=== PATIENT | male | born 1945 | race Caucasian/White ===

== ENCOUNTER 2019-08-04 16:02 | Outpatient (RCR) | payer MEDICARE, SELFPAY | END 2019-11-02 23:59 | disposition home or self-care (01) | LOC: CHSPT 16:02 | PROVIDERS: Visit Provider Family Medicine | DX: M54.6 Pain in thoracic spine (principal) | CPT/HCPCS: 97014; 97110; G0283 ==

== ENCOUNTER 2020-08-20 07:57 | Outpatient (CLI) | payer MEDICARE, SELFPAY ==
--- NOTE | ~2020-08-20 | XR_ITS ---
MODIFIED ESOPHAGRAM HISTORY: Dysphagia. TECHNIQUE: Modified barium esophagram was performed by speech pathologist under radiologist fluorosco pic guidance. This was recorded on tape. The exam was reviewed on 08/20/2020 09:55 SENIOR COUNSEL. The DAP for this procedure was 1.3 Gycm2. Fluoroscopy time is 1.3 minutes. FINDINGS: Lateral projection of the cervical spine demonstrates normal alignment. There is normal s wallowing function in all phases without evidence for penetration or aspiration.. IMPRESSION: 1: Normal swallowing function without evidence for penetration or aspiration. 2: Please refer to speech pathologist report for additional detail. Reviewed, dictated and finalized at location B. OR COUNSEL
--- NOTE | 2020-08-20 13:48 | STOPEVAL ---
MODIFIED BARIUM SWALLOW EVALUATION: Thank you for referring Jimbo Hernandez to [facility].? Attending Provider: Fidel Kearns MD FAX: [phone] *[place] [place] Start: 08/20/20 13:28 Freq: Status: Active Protocol: Document 08/20/20 13:28 BECHERERT (Rec: 08/20/20 13:48 BECHERERT [email or web address]) Therapy Assessment Status Assessment Status Assessment Status Evaluation Outpatient Past Medical History Past Medical History Source of Past Medical History Patient Respiratory History Hx Sleep Apnea Yes: CPAP at night Gastrointestinal History Hx Gastroesophageal Reflux Disease Yes: on omeprazole Prior Level of Function Prior Swallow Level Prior Intake Method Oral Prior Diet Regular (Level 7 Diet) Prior Liquid Consistency Thin (Level 0 Diet) Pain Assessment Timing of Pain Assessment Timing of Pain Assessment Assessment Self Report Self Report Pain Level 0 Pain Score Pain Score 0: Self Report Modified Barium Swallow Evaluation Recent Swallowing History Reports Dysphagia Yes: no choking but food gets stuck; chest pain after eating Onset of Dysphagia 8 months or so History of Dysphagia previous esophageal dilatations History of Pneumonia No Reported Difficult Consistencies Solids Intake Method Prior to Swallow Oral Evaluation Diet Prior to Swallow Evaluation Regular, Level 7 Liquid Consistency Prior to Swallow Thin (0) Evaluation Consistency Thin Uncontrolled 2 Method of Presentation Straw Oral Preparatory Symptoms None Oral Phase Symptoms None Pharyngeal Phase Symptoms None Severity of Vallecular Residue None - 0% No Residue Severity of Pyriform Sinus Residue None - 0% No Residue 8 Point Laryngeal Penetration-Aspiration Material Does Not Enter Airway Scale Cervical/Esophageal Symptoms None Thin Uncontrolled 1 Method of Presentation Cup Oral Preparatory Symptoms None Oral Phase Symptoms None Pharyngeal Phase Symptoms None Severity of Vallecular Residue None - 0% No Residue Severity of Pyriform Sinus Residue None - 0% No Residue 8 Point Laryngeal Penetration-Aspiration Material Does Not Enter Airway Scale Cervical/Esophageal Symptoms None Solid Consistency Method of Presentation Spoon Oral Preparatory Symptoms None Oral Phase Symptoms None Pharyngeal Phase Symptoms None Severity of Vallecular Residue None - 0% No Residue Severity of Pyriform Sinus Residue None - 0% No Residue 8 Point Laryngeal Penetration-Aspiration Material Does Not Enter Airway Scale Cervical/Esophageal Symptoms
== END 2020-08-20 07:58 | disposition home or self-care (01) ==
LOC: CHSIMG 08:00
PROVIDERS: PCP Family Medicine; Visit Provider Otolaryngology
DX: R13.10 Dysphagia, unspecified (principal); R09.89 Other specified symptoms and signs involving the circulatory and respiratory systems; R07.0 Pain in throat
CPT/HCPCS: 92611

== ENCOUNTER 2021-04-16 07:14 | Outpatient (CLI) | payer MEDICARE, SELFPAY ==
--- NOTE | ~2021-04-16 | MR_ITS ---
EXAMINATION: MR lumbar spine wo con DATE: 04/16/2021 09:27 INDICATION: Bilateral leg pain. Low back pain. TECHNIQUE: Magnetic resonance imaging (MRI) of the lumbar spine was performed without intravenous con trast. Sequences included sagittal T2-weighted FSE, sagittal T2-weighted FS FSE, sagittal T1-weighted FSE, and axial T2-weighted FSE. COMPARISON: CT abdomen and pelvis 10/16/2017 FINDINGS: Bone alignment is normal. Vertebral body heights are normal. There is mildly decreased disc height at L2-L3 and L3-L4 and severely decreased disc height at L4-L5 and L5-S1. There is interbody fusion at L5-S1. The distal spinal cord signal intensity is normal. The conus medullaris is at L1. Th ere are cysts in right kidney measuring up to 19 mm. The following disc levels are specifically discu ssed: L1-L2: The disc does not extend beyond the endplate margin. There is moderate bilateral facet joint o steoarthritis. There is no neural foraminal stenosis. There is no central canal stenosis. L2-L3: The disc is bulging and has an annular fissure. There is severe bilateral facet joint osteoart hritis. There is mild bilateral neural foraminal stenosis. There is mild central canal stenosis. L3-L4: The disc is bulging and has an annular fissure. There is severe bilateral facet joint osteoart hritis. There is mild bilateral neural foraminal stenosis. There is mild central canal stenosis. L4-L5: The disc is bulging and has an annular fissure. There is severe bilateral facet joint osteoart hritis. There is moderate bilateral neural foraminal stenosis. There is mild central canal stenosis. There is moderate stenosis of the lateral recesses. L5-S1: The disc is bulging. There is mild bilateral facet joint osteoarthritis. There is mild bilater al neural foraminal stenosis. There is mild central canal stenosis. IMPRESSION: 1. Severe lower lumbar spondylosis. Reviewed, dictated and finalized at location A.
== END 2021-04-16 07:15 | disposition home or self-care (01) ==
LOC: CHSIMG 07:17
PROVIDERS: PCP Family Medicine; Visit Provider Family Medicine
DX: M79.604 Pain in right leg (principal); M79.605 Pain in left leg
CPT/HCPCS: 72148

== ENCOUNTER 2021-10-28 12:25 | Outpatient (CLI) | payer MEDICARE, SELFPAY ==
--- NOTE | ~2021-10-28 | US_ITS ---
EXAMINATION: US arterial ankle brachial ind DATE: 10/28/2021 12:56 INDICATION: Claudication TECHNIQUE: Segmental pressures and plethysmographic and Doppler waveforms of the brachial and lower e xtremity arteries were obtained. COMPARISON: None. FINDINGS: Right and left brachial artery pressures of 151 mm Hg and 148 mm Hg, respectively, are concordant (no rmal difference <= 30 mmHg). The right ankle-brachial index (MANI) is 1.15 (normal >= 0.9-1.0). Arterial Doppler waveforms are tr iphasic. The left MANI is 1.09. Arterial Doppler waveforms are triphasic. IMPRESSION: Bilateral normal MANI Reviewed, dictated and finalized at Location A. Reviewed, dictated and finalized at location A. [employer] IMPRESSION: Bilateral normal MANI
== END 2021-10-28 12:26 | disposition home or self-care (01) ==
LOC: CHSIMG 12:26
PROVIDERS: PCP Family Medicine; Visit Provider Family Medicine
DX: I73.9 Peripheral vascular disease, unspecified (principal)
CPT/HCPCS: 93922

== ENCOUNTER 2022-02-10 12:40 | Outpatient (CLI) | payer MEDICARE, SELFPAY ==
--- NOTE | ~2022-02-10 | XR_ITS ---
EXAMINATION: XR chest 2V DATE: 02/10/2022 12:57 INDICATION: 2 weeks of cough TECHNIQUE: PA and lateral views of the chest were obtained. COMPARISON: Chest radiograph dated 12/12/2018 FINDINGS: The lungs remain clear with no focal airspace opacities, pulmonary edema, pleural effusion or pneumot horax. The cardiomediastinal silhouette is normal. Unchanged minute radiopaque foreign body in the in ferior left pectoral subcutaneous tissues. Visualized bones and soft tissues are otherwise unremarkab le. IMPRESSION: 1. No acute cardiopulmonary disease. Reviewed, dictated and finalized at location B.
== END 2022-02-10 12:41 | disposition home or self-care (01) ==
LOC: CHSIMG 12:42
PROVIDERS: PCP Family Medicine; Visit Provider Registered Nurse
DX: R05.9 Cough, unspecified (principal)
CPT/HCPCS: 71046

== ENCOUNTER 2022-07-26 13:44 | Outpatient (RCR) | payer MEDICARE, SELFPAY ==
--- NOTE | 2022-07-26 14:54 | PTOPEVAL1 ---
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 he reports the pain in the R knee was getting to much to deal with and made it difficult to walk, go up stairs, and carry on with his daily living. he reports he is sore today. he reports he was up and down all night having to use the restroom due to drinking more water than normal lately. Reported Pain Level Pain Score 4: Self Report Assessment PT Clinical Summary mr. sepulveda presents to skilled PT services for evaluation and treatment s/p R TKA. he presents this date with R knee decreased rom, weakness, pain, swelling, and abnormal gait mechanics. he would do well to attend skilled PT to improve his objective/functional deficits and progress towards return to prior level functional activity performance with little to no pain. Plan of Care Interventions Electrical Stimulation,Gait Training,Hot Pack/Cold Pack,Intermittent Compression,Manual Therapy, Neuro Re-education,Patient/Caregiver Educati, Therapeutic Activities,Therapeutic Exercise PT Services Indicated Yes Treatment Frequency and 3x weekly for 12 visits Duration These treatments will address the objective and functional deficits as defined above. The patient will be advanced safely and appropriately in order for the patient to progress towards his/her prior level of function. Additional exercises will be introduced and as well as a comprehensive home exercise program upon discharge, if needed, ?to ensure carryover of functional gains achieved in the clinic. This treatment plan has been reviewed and agreement upon by the patient.
--- NOTE | 2022-08-23 13:04 | PTOPEVAL1 ---
Assessment and note entered by Abundio Zimmer Evaluation Information Assessment Status Progress Diagnosis s/p R TKA Onset 07/24/22 Subjective Information Pt. reports that he recently returned to the doctor. He states that the doctor was happy the progress of bending his knee. He states that the doctor did continue to express concern regarding the pt. being able to straighten the knee and had concern with his walking. Reported Pain Level Pain Score 4: Self Report Assessment PT Clinical Summary Pt. has attended a total of 12 treatment sessions. In this time pt. has demonstrated improvements in strength and ROM. He continues to present with impaired gait and limitations in extension mobility at the right knee. Recommend continued skilled PT to further improve ROM to allow the pt. improved mechanics with ambulation and safe return to all IADL's. Plan of Care Interventions Hot Pack/Cold Pack,Intermittent Compression,Manual Therapy,Therapeutic Activities,Therapeutic Exercise,Self-Care/Home Management PT Services Indicated Yes Treatment Frequency and 2x/week x 6 visits Duration These treatments will address the objective and functional deficits as defined above. The patient will be advanced safely and appropriately in order for the patient to progress towards his/her prior level of function. Additional exercises will be introduced and as well as a comprehensive home exercise program upon discharge, if needed, ?to ensure carryover of functional gains achieved in the clinic. This treatment plan has been reviewed and agreement upon by the patient.
--- NOTE | 2022-09-15 13:57 | PTOPPROG ---
Assessment and note entered by Niyah Morris DPT Evaluation Information Assessment Status Progress Diagnosis s/p R TKA Onset 07/24/22 Subjective Information Pt reports that his biggest remaining complaint in his knee is that he always feels it with activities. He feels he is able to do everything that he needs to do, but his knee pain remains noticeable. He notes he doesn't do a lot of heavy activities anymore and hasn't tried to ride his tractor. He has his next follow-up with his MD at the end of September. Assessment PT Clinical Summary Pt presents to PT with significant improvements in range of motion, strength, and gait pattern. He still remains limited in knee extension ROM which leads to continued lacking R knee TKE during ambulation. His HEP was updated to continue to improve knee extension as needed for a better gait pattern and for increased mobility. He is likely to benefit from additional skilled PT at 1x week to further improve the aforementioned impairments, facilitate symptom relief, increase independence with HEP, and return to full functional and recreational activity participation. Plan of Care PT Services Indicated Yes Treatment Frequency and 1x week for 4 visits Duration These treatments will address the objective and functional deficits as defined above. The patient will be advanced safely and appropriately in order for the patient to progress towards his/her prior level of function. Additional exercises will be introduced and as well as a comprehensive home exercise program upon discharge, if needed, ?to ensure carryover of functional gains achieved in the clinic. This treatment plan has been reviewed and agreement upon by the patient.
--- NOTE | 2022-10-12 10:34 | PTOPREEVAL ---
Assessment and note entered by JT File, PT Evaluation Information Assessment Status Progress Diagnosis s/p R TKA Onset 07/24/22 Subjective Information Pt reports that his biggest remaining complaint in his knee is that he always feels it with activities. He feels he is able to do everything that he needs to do, but his knee pain remains noticeable. He notes he doesn't do a lot of heavy activities anymore and hasn't tried to ride his tractor. He has his next follow-up with his MD at the end of September. Reported Pain Level Pain Score 3: Self Report Assessment PT Clinical Summary mr. abel presents to skilled PT for his skilled PT visit. as of this date, he has achieved goals for LE strength, hep performance, stair ambulation, and ambulation AD needs. however, he continues to present with lack of full R knee arom extension, he has swelling in the R knee, is tender to palpation/has pain at all times in the R lateral patella, and continues report limitations in his functional activity performance/quality of life. he has a follow up with MD next week, and was instructed to hold therapy until he has this MD visit. Plan of Care Interventions Intermittent Compression,Manual Therapy, Therapeutic Activities,Therapeutic Exercise,Self- Care/Home Management PT Services Indicated Yes Treatment Frequency and hold therapy for follow up with MD Duration These treatments will address the objective and functional deficits as defined above. The patient will be advanced safely and appropriately in order for the patient to progress towards his/her prior level of function. Additional exercises will be introduced and as well as a comprehensive home exercise program upon discharge, if needed, ?to ensure carryover of functional gains achieved in the clinic. This treatment plan has been reviewed and agreement upon by the patient.
--- NOTE | 2022-10-12 10:36 | PTOPREEVAL ---
Assessment and note entered by JT File, PT Evaluation Information Assessment Status Re-evaluation Diagnosis s/p R TKA Onset 07/24/22 Subjective Information patient reports he continues to ahve steady pain at a 3/10 in the R knee. he reports the pain is on the outside of the R knee and never lets up. he reports he feels more tight and swollen at the end of the day. he reports he is doing his exercises and walking 3-4 times a day. he reports he has a follow up with his MD next week. Reported Pain Level Pain Score 3: Self Report Assessment PT Clinical Summary mr. abel presents to skilled PT for his skilled PT visit. as of this date, he has achieved goals for LE strength, hep performance, stair ambulation, and ambulation AD needs. however, he continues to present with lack of full R knee arom extension, he has swelling in the R knee, is tender to palpation/has pain at all times in the R lateral patella, and continues report limitations in his functional activity performance/quality of life. he has a follow up with MD next week, and was instructed to hold therapy until he has this MD visit. Plan of Care Interventions Intermittent Compression,Manual Therapy, Therapeutic Activities,Therapeutic Exercise,Self- Care/Home Management PT Services Indicated Yes Treatment Frequency and hold therapy for follow up with MD Duration These treatments will address the objective and functional deficits as defined above. The patient will be advanced safely and appropriately in order for the patient to progress towards his/her prior level of function. Additional exercises will be introduced and as well as a comprehensive home exercise program upon discharge, if needed, ?to ensure carryover of functional gains achieved in the clinic. This treatment plan has been reviewed and agreement upon by the patient.
--- NOTE | 2022-11-27 17:37 | PCPTNOTE ---
per last visit, patient was awaiting follow up with MD. he continues to have pain in the R knee, but is now more complicated by lower back pain. he would like to be DC'd from therapy at this time. DIMA
== END 2022-10-12 23:59 | disposition home or self-care (01) ==
LOC: CHSPT 13:44
PROVIDERS: Visit Provider Orthopaedic Surgery
DX: Z47.1 Aftercare following joint replacement surgery (principal); M17.11 Unilateral primary osteoarthritis, right knee; Z96.651 Presence of right artificial knee joint
CPT/HCPCS: 97014; 97016; 97110; 97112; 97140; 97161; 97530; G0283

== ENCOUNTER 2023-01-19 08:19 | Outpatient (CLI) | payer MEDICARE, SELFPAY ==
--- NOTE | 2023-01-22 20:10 | P.PCNHOL_ITS ---
Holter/Event Monitor Holter/Event Monitor Date of procedure: 01/19/23 Holter/Event Procedure: 24 Hr Holter Monitor Indications: Bradycardia Conclusion: 1. 24 hour holter monitor on 01/19/23. 2. Underlying rhythm is sinus rhythm, HR range 30-79 bpm; average 44 bpm. HR at 30 bpm was sinus rhythm with second degree AV block, type I at 06:52. 3. There are 376 premature supraventricular complexes, 86 supraventricular co uplets, 608 supraventricular bigeminy, and 7 supraventricular trigeminy. No supraventricular tachycardia. 4. There are 198 premature ventricular complexes, 112 ventricular bigeminy. No ventricular tachycardia. 5. There is right bundle branch block. There are intermittent second degree AV block, type II with 2:1, 3:1, and 4:1 AV block. The longest pause is 3.2 seconds at 02:28 due to second degree AV block with 4:1 AV block. 6. Patient reports symptoms of headache and chest tightness which demonstrate sinus rhythm, HR range 34-42 bpm with second degree AV block, type II with 2:1 AV block and 3:1 AV block.
== END 2023-01-19 08:20 | disposition home or self-care (01) ==
LOC: CHSCARD 08:22
PROVIDERS: PCP Family Medicine; Visit Provider Family Medicine
DX: R00.1 Bradycardia, unspecified (principal); I45.19 Other right bundle-branch block
CPT/HCPCS: 93225; 93226

== ENCOUNTER 2023-10-28 20:55 | Emergency (ER) | payer MEDICARE, SELFPAY ==
--- NOTE | ~2023-10-28 | XR_ITS ---
AP view of the pelvis and AP and lateral views of the right hip Clinical history: Pain Findings: No acute fracture or dislocation is seen. Osseous alignment is anatomic. There is mild dege nerative change of both hip joints. Soft tissues are unremarkable. 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 Reviewed, dictated and finalized at location . 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
[2023-10-28 21:05] VITALS: BP 185/77; PULSE 67; RESP 18; TEMP 36.7; O2SAT 97
--- NOTE | 2023-10-28 21:06 | ED.BACK ---
HPI - Back Pain/Injury General Chief Complaint: Back Pain/Injury Stated Complaint: Flank/Groin Pian Time Seen by Provider: 10/28/23 21:06 Source: patient Mode of arrival: ambulatory Limitations: no limitations History of Present Illness HPI Narrative: 78-year-old male with a history of hypertension, dyslipidemia, diabetes mellitus Status post bilateral inguinal hernia repair, presents to the ER with a 2 day history of -- right flank pain radiating down to the right groin and up to right CVA angle. pain is made worse by movement. Pain is continuous. No fever or chills. No dysuria or hematuria. No history of kidney stones. Onset (ago): day(s) ( Two days) Timing: constant Severity: severe Similar Symptoms Previously: No Quality: aching Location: right flank Radiation: right upper leg Exacerbating factors: movement Relieving factors: immobilization Associated symptoms: denies other symptoms Related Data Home Medications Medication Instructions Recorded Confirmed atorvastatin 20 mg tablet 20 mg PO DAILY 06/09/20 10/28/23 glipizide 10 mg tablet 10 mg PO BID 06/09/20 10/28/23 lisinopril 40 mg tablet 40 mg PO DAILY 06/09/20 10/28/23 omeprazole 40 mg capsule,delayed 40 mg PO BID 06/09/20 10/28/23 release aspirin 81 mg chewable tablet 81 mg PO DAILY 10/28/23 10/28/23 chlorthalidone 25 mg tablet 12.5 mg PO DAILY 10/28/23 10/28/23 hydralazine 25 mg tablet 25 mg PO TID 10/28/23 10/28/23 nifedipine 60 mg tablet,extended 60 mg PO DAILY 10/28/23 10/28/23 release 24 hr sitagliptin phosphate 100 mg 100 mg PO DAILY 10/28/23 10/28/23 tablet (Januvia) Allergies Allergy/AdvReac Type Severity Reaction Status Date / Time No Known Allergies Allergy Verified 07/07/20 13:12 Review of Systems Review of Systems: All systems reviewed & are unremarkable except as noted in HPI and below Constitutional: Constitutional: Reports as per HPI and Reports no additional constitutional complaints Eyes: Eyes: Reports as per HPI and Reports no additional eye complaints ENT: Reports system reviewed and no additional complaints, except as documented and Reports as per HPI Cardiovascular: Cardiovascular: Reports as per HPI and Reports no additional cardiovascular complaints Respiratory: Respiratory: Reports as per HPI and Reports no additional respiratory complaints Gastrointestinal: Gastrointestinal: Reports as per HPI and Reports no additional gastrointestinal complaints Genitourinary: Genitourinary: Reports no additional male genitourinary complaints and Reports as per HPI Musculoskeletal: Musculoskeletal: Reports no additional musculoskeletal complaints and Reports as per HPI Comments: right groin pain which radiates up and down. Pain is continuous. Integumentary/Breasts: Skin/Breast: Reports system reviewed and no additional complaints, except as docu and Reports as per HPI Neurologic: Reports system reviewed and no additional complaints, except as documented and Reports as per HPI Psychiatric: Psychiatric: Reports no additional psychiatric complaints and Reports as per HPI Endocrine: Endocrine: Reports no additional endocrine complaints and Reports as per HPI Hematologic/Lymphatic: Hematologic/Lymphatic: Reports no additional hematologic/lymphatic complaints and Reports as per HPI Allergic/Immunologic: Allergic/Immunologic: Reports no additional allergic/immunologic complaints and Reports as per HPI PMFSH Past Medical History Medical History (Updated 10/28/23 @ 22:21 by Jones Barker MD) Diabetes mellitus Dyslipidemia Hypertension Surgical History Surgical History (Updated 10/28/23 @ 21:22 by Jones Barker MD) H/O bilateral inguinal hernia repair Social History Social History (Updated 07/07/20 @ 13:13 by Beatrice Nichols MA) Smoking status: Never smoker Exam Narrative: systolic hypertension. Afebrile Const: General: healthy appearing Orientation/consciousness: patient britany
[2023-10-28] MEDS: ONDANSETRON HCL ODT 4 MG TABLET PO (21:22)
[2023-10-28] MEDS: KETOROLAC 30 MG/ML VIAL (*BKC) IM (21:24)
[2023-10-28 21:39] LABS: Basophils Absolute Auto 0.03 K/mm3 (0.00-0.10); Basophils Percent Auto 0.3 % (0.0-1.0); Eosinophils Absolute Auto 0.07 K/mm3 (0.02-0.50); Eosinophils Percent Auto 0.7 % (1.0-6.0); Hematocrit 47.1 % (37.0-46.0); Hemoglobin 15.2 g/dL (12.4-15.3); Immature Granulocyte Absolute 0.06 K/mm3 (0.00-0.00); Immature Granulocyte Percent A 0.6 % (0.0-0.0); Lymphocytes Absolute Auto 1.33 K/mm3 (1.10-4.50); Lymphocytes Percent Auto 13.7 % (18.0-42.0); Mean Corpuscular HGB Conc 32.3 g/dL (32.0-36.0); Mean Corpuscular Hemoglobin 27.6 pg (27.0-31.0); Mean Corpuscular Volume 85.5 fL (78.0-102.0); Mean Platelet Volume 11.2 fl (8.7-11.0); Monocytes Absolute Auto 0.63 K/mm3 (0.10-0.90); Monocytes Percent Auto 6.5 % (2.0-11.0); Neutrophils Absolute Auto 7.6 K/mm3 (1.7-7.2); Neutrophils Percent Auto 78.2 % (50.0-70.0); Platelet Count Result 166 K/mm3 (150-420); Red Blood Count 5.51 M/mm3 (4.70-6.10); Red Cell Distribution Width 13.3 % (11.6-14.4); White Blood Count 9.7 K/mm3 (4.8-10.8)
[2023-10-28 21:41] LABS: Appearance Urine Clear (Clear); Bilirubin Urine Negative (Negative); Blood Urine Negative (Negative); Color Urine Light Yellow (Yellow); Glucose Urine UA 2+ (Negative); Ketones Urine Negative (Negative); Leukocyte Esterase Ur Negative LEU/UL (Negative); Nitrate Urine Negative (Negative); Protein Urine 2+ (Negative); Specific Grav Ur >= 1.030 (1.010-1.020); Urobilinogen Urine 0.2 mg/dL (0.2-1.0); pH Urine 6.5 (5.0-8.0)
[2023-10-28 21:51] LABS: Add Urine Microscopic? YES
[2023-10-28 21:52] LABS: Amorphous Sediment Urine Few; Mucus Urine Moderate /lpf
[2023-10-28 21:59] LABS: Alanine Aminotransferase 23 U/L (16-63); Albumin Level 3.6 g/dL (3.4-5.0); Alkaline Phosphatase 73 U/L (46-116); Anion Gap 8 mmol/L (8-16); Aspartate Amino Transferase 15 U/L (15-37); Bilirubin,Total 0.4 mg/dL (0.00-1.00); Blood Urea Nitrogen 13 mg/dL (7-18); Calcium 8.9 mg/dL (8.5-10.1); Carbon Dioxide 29 mmol/L (21-32); Chloride 105 mmol/L (98-108); Estimated CRCL calculation 58 ml/min; Estimated Glomerular Filt Rate > 60; Glucose 193 mg/dL (70-99); Lipase 85 U/L (16-77); Osmolality Calculated 299 mOsm/kg (285-295); Potassium 3.7 mmol/L (3.5-5.1); Sodium 142 mmol/L (136-145); Total Protein 6.8 g/dL (6.4-8.2)
[2023-10-28 22:01] LABS: Lactic Acid Reflex 1.2 mmol/L (0.4-2.0)
[2023-10-28] MEDS: HYDROmorphone HCL INJ (*CRX) 2 MG/ML VIAL 0.5 MG IM (22:23)
[2023-10-28 22:38] VITALS: BP 170/100; PULSE 78; RESP 18; O2SAT 95
== END 2023-10-28 22:40 | disposition home or self-care (01) ==
PROVIDERS: Emergency Provider Internal Medicine Critical Care Medicine; PCP Family Medicine
DX: M16.11 Unilateral primary osteoarthritis, right hip (principal); I10 Essential (primary) hypertension; E78.5 Hyperlipidemia, unspecified; E11.9 Type 2 diabetes mellitus without complications; Z79.82 Long term (current) use of aspirin; Z79.899 Other long term (current) drug therapy
CPT/HCPCS: 36415; 73502; 80053; 81001; 83605; 83690; 85025; 96372; 99284; A9270; J1170; J1885

== ENCOUNTER 2023-12-07 10:02 | Outpatient (RCR) | payer MEDICARE, SELFPAY ==
--- NOTE | 2023-12-07 18:25 | OPREHPOC ---
Outpatient Therapy Plan of Care This is a Multidisciplinary Plan of Care that may contain components documented by all disciplines (PT, OT, and ST.) PT Problem 1 PT Problem #1 Knowledge Deficit PT Goal 1 Goal 1. independent and compliant with HEP Target Visit 6 PT Problem 2 PT Problem #2 Pain PT Goal 1 Goal 1. decrease pain at worst to 2/10 or less in the lower back 2. no R LE radicular symptoms Target Visit 12 PT Problem 3 PT Problem #3 Impaired Range of Motion PT Goal 1 Goal 1. improve active lumbar flexion to ankles without pain 2. improve active lumbar extension to 30 degrees without pain 3. improve active lumbar side bending bilaterally to 40 degrees or better without pain Target Visit 12 PT Problem 4 PT Problem #4 Impaired Strength PT Goal 1 Goal 1. improve bilateral hip strength to 4+/5 or better overall 2. improve core strength to 4/5 or better Target Visit 12 PT Problem 5 PT Problem #5 Impaired Functional Mobil PT Goal 1 Goal 1. oswestry to display 25% or less functional deficits 2. patient to tolerate activities in therapy for 30 minutes without rest 3. patient to safely squat and lift 40lbs from floor to waist with good mechanics and no pain 4. patient perform 10 minutes ambulation without rest in therapy Target Visit 12
--- NOTE | 2023-12-07 18:25 | PTOPEVAL1 ---
Assessment and note entered by JT File, PT Evaluation Information Assessment Status Evaluation Diagnosis lumbar radiculopathy, lumbar spinal stenosis, R hip pain Onset 10/27/23 Subjective Information patient reports the pain this time around began on 10/27/23. he reports he has had pain in the in the back in the past that used to flare up at times, but go away on its own. he reports on 10/27 he was helping a beau trim some trees at his house. he reports his back pain came on suddenly and made him almost sick to his stomach. he reports he went to the ER and had xrays taken. he reports he was told in the ER he has arthritis in the hip, but his PCP believes he is having more of an issue with sciatica/pinched nerve. he reports since 10/27/23, he has increased pain with increased activity (riding on towel sorter, cleaning his shed, etc). he reports he is only able to tolerate a couple hours of activity before having to stop due to pain. he reports the pain starts in the R side lower back and rusn down the R leg to his knee. he reports the knee feels like it is numb. he reports he does have groin pain. Reported Pain Level Pain Score 5: Self Report Assessment PT Clinical Summary mr. abel is a pleasant 78 yo man who presents to skilled PT services for evaluation and treatment of lower back and R LE pain. he presents with signs and symptoms of lumbar DDD creating radiculopathy into the R LE. he displays decreased lumbar rom, proximal LE weakness, and deficits in functional activities in relative extension ( standing and walking). continued skilled PT is indicated to improve his objective/functional deficits and progress towards return to performance of prior level home and community activities, especially yard and land care. Plan of Care Interventions Hot Pack/Cold Pack,Manual Therapy,Mechanical Traction,Neuro Re-education,Patient/Caregiver Educati,Therapeutic Activities,Therapeutic Exercise PT Services Indicated Yes Treatment Frequency and 3x weekly for 12 visits Duration These treatments will address the objective and functional deficits as defined above. The patient will be advanced safely and appropriately in order for the patient to progress towards his/her prior level of function. Additional exercises will be introduced and as well as a comprehensive home exercise program upon discharge, if nee
--- NOTE | 2024-01-01 08:45 | OPREHPOC ---
Outpatient Therapy Plan of Care This is a Multidisciplinary Plan of Care that may contain components documented by all disciplines (PT, OT, and ST.) PT Problem 1 PT Problem #1 Knowledge Deficit PT Goal 1 Goal 1. independent and compliant with HEP Target Visit 6 Progress Met PT Problem 2 PT Problem #2 Pain PT Goal 1 Goal 1. decrease pain at worst to 2/10 or less in the lower back 2. no R LE radicular symptoms Target Visit 12 Progress Partially Met Comment continue PT Problem 3 PT Problem #3 Impaired Range of Motion PT Goal 1 Goal 1. improve active lumbar flexion to ankles without pain 2. improve active lumbar extension to 30 degrees without pain 3. improve active lumbar side bending bilaterally to 40 degrees or better without pain Target Visit 12 Progress Not Met Comment Continue PT Problem 4 PT Problem #4 Impaired Strength PT Goal 1 Goal 1. improve bilateral hip strength to 4+/5 or better overall 2. improve core strength to 4/5 or better Target Visit 12 Progress Not Met Comment continue PT Problem 5 PT Problem #5 Impaired Functional Mobil PT Goal 1 Goal 1. oswestry to display 25% or less functional deficits 2. patient to tolerate activities in therapy for 30 minutes without rest 3. patient to safely squat and lift 40lbs from floor to waist with good mechanics and no pain 4. patient perform 10 minutes ambulation without rest in therapy Target Visit 12 Progress Not Met Comment continue
--- NOTE | 2024-01-01 08:45 | PTOPEVAL1 ---
Assessment and note entered by Mary Anne Kelly, PT Evaluation Information Assessment Status Progress Diagnosis lumbar radiculopathy, lumbar spinal stenosis, R hip pain Onset 10/27/23 Subjective Information Jimbo Hernandez reports he fell on 12/30/23 while walking his daughter's dog. He states the dog turned around in front of him and he tripped over the dog. He broke his glasses, sustained a black eye, sprained his left wrist, sustained a left knee contusion, and a left chest wall contusion. He went to the ER and x-rays revealed no fractures and that his pacemaker was not affected. He is having the most pain in her left chest wall. He does not note any change to low back or right leg pain following the fall. Overall, he reports minimal low back pain unless he has been bending a lot then he notes right lower back pain and occasional pain in the right knee. Reported Pain Level Pain Score 0: Self Report Assessment PT Clinical Summary Jimbo Hernandez has completed 10 skilled PT visits for lumbar radiculopathy, lumbar spinal stenosis, and right hip pain. He is reporting minimal low back pain but does still get a catch and soreness in the right lower back when he has been bending over too much. He had a fall on 12/30/23 and sustained a left chest wall contusion, left knee contusion, and left wrist sprain. He is reporting the most pain in his left chest wall today after the fall. He continues to demonstrate decreased lumbar AROM, decreased core and hip strength, decreased hamstring flexibility, and tenderness in the right gluteals. He will continue to benefit from skilled PT for 2 additional visits per original POC. Plan of Care Interventions Hot Pack/Cold Pack,Manual Therapy,Mechanical Traction,Neuro Re-education,Patient/Caregiver Educati,Therapeutic Activities,Therapeutic Exercise PT Services Indicated Yes Treatment Frequency and Continue x 2 more visits Duration These treatments will address the objective and functional deficits as defined above. The patient will be advanced safely and appropriately in order for the patient to progress towards his/her prior level of function. Additional exercises will be introduced and as well as a comprehensive home exercise program upon discharge, if needed, ?to ensure carryover of functional gains achieved in the clinic. This treatment plan has been reviewed and agreement upon by the patient.
--- NOTE | 2024-01-04 13:50 | OPREHPOC ---
Outpatient Therapy Plan of Care This is a Multidisciplinary Plan of Care that may contain components documented by all disciplines (PT, OT, and ST.) PT Problem 1 PT Problem #1 Knowledge Deficit PT Goal 1 Goal 1. independent and compliant with HEP Target Visit 6 Progress Met PT Problem 2 PT Problem #2 Pain PT Goal 1 Goal 1. decrease pain at worst to 2/10 or less in the lower back. met 2. no R LE radicular symptoms. met Target Visit 12 Progress Met Comment . PT Problem 3 PT Problem #3 Impaired Range of Motion PT Goal 1 Goal 1. improve active lumbar flexion to ankles without pain. not met 2. improve active lumbar extension to 30 degrees without pain. not met 3. improve active lumbar side bending bilaterally to 40 degrees or better without pain. met Target Visit 12 Progress Partially Met Comment . PT Problem 4 PT Problem #4 Impaired Strength PT Goal 1 Goal 1. improve bilateral hip strength to 4+/5 or better overall. met 2. improve core strength to 4/5 or better Target Visit 12 Progress Partially Met Comment . PT Problem 5 PT Problem #5 Impaired Functional Mobil PT Goal 1 Goal 1. oswestry to display 25% or less functional deficits 2. patient to tolerate activities in therapy for 30 minutes without rest. met 3. patient to safely squat and lift 40lbs from floor to waist with good mechanics and no pain 4. patient perform 10 minutes ambulation without rest in therapy. met Target Visit 12 Progress Partially Met Comment .
--- NOTE | 2024-01-04 13:50 | PTOPDC ---
Assessment and note entered by JT File, PT Evaluation Information Assessment Status Discharge Diagnosis lumbar radiculopathy, lumbar spinal stenosis, R hip pain Onset 10/27/23 Subjective Information patient reports he has found out that he did disrupt a pace maker wire, and has to have a new wire placed. he reports this surgery will be on . he reports he had had no change or increase in his lower back pain since his fall, and his back feels pretty good. Reported Pain Level Pain Score 6,0: Self Report Assessment PT Clinical Summary mr. abel presents to skilled PT services for his 12th skilled therapy visit. he continues to have pain in the L chest from his fall on 12/30/23 . however, he has no back pain or increased back symptoms from this fall. he has found out that he needs a new pace maker wire, and will have surgery on 01/24/24. he has met goals for improved lumbar rom, hip strength, pain reduction, and functional mobility. he has also made progress towards all other goals. we will DC therapy for his lower back at this time. he was educated to follow up with PT about needs for L chest pain following pace maker surgery. Plan of Care PT Services Indicated Yes
== END 2024-01-04 14:28 | disposition home or self-care (01) ==
LOC: CHSPT 10:02
DX: M54.16 Radiculopathy, lumbar region (principal); M48.061 Spinal stenosis, lumbar region without neurogenic claudication; M25.551 Pain in right hip
CPT/HCPCS: 97110; 97140; 97161

== ENCOUNTER 2023-12-30 09:24 | Emergency (ER) | payer MEDICARE, SELFPAY ==
--- NOTE | ~2023-12-30 | CT_ITS ---
EXAMINATION: 1. CT facial & cervical spine wo DATE: 12/30/2023 10:20 INDICATION: Fall with head injury TECHNIQUE: 1. Computed tomography (CT) of the maxillofacial region and of the cervical spine were performed with out intravenous contrast. Sagittal and coronal reconstructions of both regions were obtained. Automat ed exposure control and iterative reconstruction technique were employed. The dose-length product was 493.02 mGy-cm. COMPARISON: None. FINDINGS: Maxillofacial CT: Small contusion in the left malar region. No maxillofacial fractures. Specifically the nasal bones, m andible, zygomatic arches and mitchell of the orbits and paranasal sinuses are all normal. Mild leftward bowing of the nasal septum. Changes of bilateral intraocular lens replacement. Orbits are otherwise normal. Mild mucosal thickening the bilateral ethmoid and maxillary sinuses. Likely bilateral antral window procedures with small defects along the medial mitchell of the right maxillary sinuses. Cervical spine CT: Alignment is normal. Vertebral body heights are normal. No fracture. Moderate to severe disc height l oss with moderate left and severe right uncovertebral osteoarthritis at C5-C6. Small posterior disc o steophyte complex at this level results in mild central canal stenosis. Mild disc height loss with mi ld to moderate uncovertebral osteoarthritis at the remaining cervical levels. There is multilevel sev ere cervical facet osteoarthritis. This contributes to moderate neural foraminal stenosis on the left at C3-C4 with multilevel mild neural from stenosis throughout the remainder of the cervical spine. 5 .3 x 2.9 x 2.6 cm fusiform intramuscular lipoma within the right posterior cervical paraspinal muscul ature. Cervical soft tissues are otherwise unremarkable. Visualized apices of lungs are clear. Partia lly visualized cardiac pacemaker leads in the left subclavian vein. IMPRESSION: 1. Small left malar subcutaneous contusion. No maxillofacial fractures. 2. Moderate to severe cervical spondylosis without acute osseous abnormality. Reviewed, dictated and finalized at location A.
--- NOTE | ~2023-12-30 | XR_ITS ---
EXAMINATION: XR hand LT min 3V, XR wrist LT min 3V DATE: 12/30/2023 10:21 INDICATION: Left wrist pain radiating to the proximal metacarpals TECHNIQUE: 1. Posteroanterior, oblique, and lateral views of the left wrist were obtained. 2. Dorsal palmar, oblique and lateral views of the left hand were obtained. COMPARISON: None. FINDINGS: 2 mm ulnar minus variance. Alignment of the hand and wrist is otherwise normal. No fracture identifi ed. There is erosion at the radial side of the lunate. Polyarticular osteoarthritis, severe at the tr iscaphe joint, moderate severity at the distal radioulnar joint and with prominent marginal osteophyt es at the first carpometacarpal joint and mild at the wrist and multiple metacarpophalangeal and inte rphalangeal joints. IMPRESSION: 1. No acute osseous abnormality at the left hand or wrist. 2. 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 3. Nonspecific erosion at the radial aspect of the lunate. Reviewed, dictated and finalized at location A. IMPRESSION: 1. No acute osseous abnormality at the left hand or wrist. 2. 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 3. Nonspecific erosion at the radial aspect of the lunate.
--- NOTE | ~2023-12-30 | CT_ITS ---
EXAMINATION: CT diagnostic chest wo con DATE: 12/30/2023 10:19 INDICATION: fall/chest pain x1 day TECHNIQUE: Computed tomography (CT) of the chest was performed without intravenous contrast. Addition al 3D reconstructions utilizing coronal maximum intensity projection (MIP) were performed. Automated exposure control and iterative reconstruction technique were employed. The dose-length product was 68 1.00 mGy-cm. COMPARISON: None FINDINGS: Elevation the right hemidiaphragm with compressive atelectasis along the basilar right middle and low er lobes. Additional band of discoid atelectasis in the right lower lobe. There are a few small scatt ered calcified pulmonary nodules along with calcified bilateral hilar lymph nodes and a few tiny sple get calcific lesions all consistent with old granulomatous disease. No pneumonia, pulmonary edema, pl eural effusion or pneumothorax. Heart size is normal. Dual-lead cardiac pacemaker with lead tips in t he right atrium and right ventricle. Thoracic aorta is normal in caliber. No pathologically enlarged thoracic lymphadenopathy. Mild thoracic spondylosis with bridging osteophytes at multiple levels cons istent with diffuse idiopathic skeletal hyperostosis (DISH). Chronic appearing T3 compression fractur e with 20% anterior vertebral body height loss. IMPRESSION: 1. Elevation the right hemidiaphragm with atelectasis in the right middle and lower lobes. No acute c ardiopulmonary disease. Reviewed, dictated and finalized at location A. IMPRESSION: 1. Elevation the right hemidiaphragm with atelectasis in the right middle and l ower lobes. No acute cardiopulmonary disease.
--- NOTE | ~2023-12-30 | CT_ITS ---
EXAMINATION: CT brain wo con DATE: 12/30/2023 10:19 INDICATION: Fall with head injury and bruising to the forehead TECHNIQUE: Computed tomography (CT) of the head was performed without intravenous contrast. Sagittal and coronal reconstructions were performed. The mA was adjusted according to patient size. Iterative reconstruction technique was employed. The dose-length product was 592.25 mGy-cm. COMPARISON: None FINDINGS: No calvarial fracture. No acute intracranial hemorrhage or acute infarction. Focal increased CSF lee ection which appears to displace the anterior left temporal lobe with widening of the anterior aspect of the sylvian fissure suggest the presence of an arachnoid cyst. Symmetric prominence of the sulci consistent with mild age-appropriate diffuse cerebral volume loss. Ventricles are normal and symmetr ic. No mass/mass effect. The orbits and mastoid air cells are normal. Mild mucoperiosteal thickening in the bilateral maxillary sinuses. IMPRESSION: 1. No fracture or acute intracranial process. Reviewed, dictated and finalized at location A.
--- NOTE | ~2023-12-30 | XR_ITS ---
EXAMINATION: XR knee LT 3V DATE: 12/30/2023 10:21 INDICATION: Left knee pain and contusion post fall TECHNIQUE: AP, sunrise, and flexed lateral views of the left knee were obtained COMPARISON: None. FINDINGS: Alignment is normal. No fracture. Severe joint space narrowing at the lateral aspect of the patellof emoral articulation with suggestion of subarticular cystic change at the lateral trochlea. Joint spac e at the medial lateral compartments appear relatively preserved on nonweightbearing imaging. Small l eft knee joint effusion. Soft tissues are otherwise unremarkable. IMPRESSION: 1. No acute osseous abnormality at the left knee. 2. Severe osteoarthritis at the lateral patellofemoral compartment likely reactive small left knee luis daniel int effusion. Reviewed, dictated and finalized at location A. IMPRESSION: 1. No acute osseous abnormality at the left knee. 2. Severe osteoarthritis at the lateral patellofemoral compartment likely react santiago small left knee joint effusion.
[2023-12-30 09:28] VITALS: BP 137/74; PULSE 68; RESP 19; TEMP 36.5; O2SAT 94
--- NOTE | 2023-12-30 09:37 | ED.FALL ---
HPI - Fall General Chief Complaint: Fall Stated Complaint: Fall/chest pain/arm wrist pain Source: patient and family Limitations: no limitations History of Present Illness HPI Narrative: 78 years old white male tripped on his dog last night fell forward landed on the left side of his body, complaining of left facial bruises, left wrist, hand pain, left upper chest pain and left knee pain. Patient denies loss of consciousness or other injuries. patient is on baby aspirin once a day. Patient came to the emergency room by a private car. Related Data Home Medications Medication Instructions Recorded Confirmed atorvastatin 20 mg tablet 20 mg PO DAILY 06/09/20 12/30/23 glipizide 10 mg tablet 10 mg PO BID 06/09/20 12/30/23 lisinopril 40 mg tablet 40 mg PO DAILY 06/09/20 12/30/23 omeprazole 40 mg capsule,delayed 40 mg PO BID 06/09/20 12/30/23 release aspirin 81 mg chewable tablet 81 mg PO DAILY 10/28/23 12/30/23 chlorthalidone 25 mg tablet 12.5 mg PO DAILY 10/28/23 12/30/23 nifedipine 60 mg tablet,extended 60 mg PO DAILY 10/28/23 12/30/23 release 24 hr sitagliptin phosphate 100 mg 100 mg PO DAILY 10/28/23 12/30/23 tablet (Januvia) carvedilol 25 mg tablet 25 mg PO BID 12/30/23 12/30/23 sacubitril 97 mg-valsartan 103 mg 1 tablet PO BID 12/30/23 12/30/23 tablet (Entresto) Allergies Allergy/AdvReac Type Severity Reaction Status Date / Time No Known Allergies Allergy Verified 12/30/23 09:40 Review of Systems Review of Systems: All systems reviewed & are unremarkable except as noted in HPI and below PMFSH Past Medical History Medical History Diabetes mellitus Dyslipidemia Hypertension Surgical History Surgical History H/O bilateral inguinal hernia repair Social History Social History Smoking status: Never smoker Exam Narrative: General appearance: Well-developed, well-nourished Skin: Normal color Head: Normocephalic, Impression and bruises left forehead Eyes: Clear conjunctiva ENT: Oropharynx normal, ears normal, nose normal Neck: Supple, nontender Chest and respiratory: Airway patent, no respiratory distress, no accessory muscle use, severe tenderness left upper chest with light palpation, no bruises or swelling or rash Heart: Regular rate/rhythm Abdomen: Soft, nontender, no organomegaly, quiet bowel sounds Vascular: Normal peripheral pulses, normal capillary refill. Musculoskeletal: diffuse tenderness left wrist, left hand and left knee with slight limited range of motion Neurologic: Alert and oriented ?3, [employer] is normal as tested, no gross motor deficit Course Vital Signs Vital signs: Vital Signs Temperature 36.5 C 12/30/23 09:28 Pulse Rate 68 12/30/23 09:28 Respiratory Rate 19 12/30/23 09:28 Blood Pressure 137/74 12/30/23 09:28 Pulse Oximetry 94 12/30/23 09:28 Oxygen Delivery Room Air 12/30/23 09:28 Temperature 36.5 C 12/30/23 09:28 Pulse Rate 68 12/30/23 09:28 Respiratory Rate 19 12/30/23 09:28 Blood Pressure 137/74 12/30/23 09:28 Pulse Oximetry 94 12/30/23 09:28 Oxygen Delivery Room Air 12/30/23 09:28 MDM - Fall MDM Narrative Medical decision making narrative: Patient had a fall, came with multiple complaints, differential diagnosis contusion, brain bleed, cervical fracture, facial bone fracture, rib fracture, knee contusion. CT head, facial bones, and cervical spine showed no acute abnormalities X-ray of the left knee and left wrist and left hand showed no acute abnormalities CT chest with
[2023-12-30 11:39] VITALS: BP 138/78; PULSE 71; RESP 18; O2SAT 97
[2023-12-30 11:40] VITALS: BP 118/60; PULSE 60; RESP 20; TEMP 36.7; O2SAT 96
[2023-12-30 11:59] VITALS: BP 118/60; PULSE 60; RESP 20; TEMP 36.7; O2SAT 96
== END 2023-12-30 11:40 | disposition home or self-care (01) ==
PROVIDERS: Emergency Provider Emergency Medicine; PCP Family Medicine
DX: S63.502A Unspecified sprain of left wrist, initial encounter (principal); S80.02XA Contusion of left knee, initial encounter; S20.219A Contusion of unspecified front wall of thorax, initial encounter; W19.XXXA Unspecified fall, initial encounter; E11.9 Type 2 diabetes mellitus without complications; E78.5 Hyperlipidemia, unspecified; I10 Essential (primary) hypertension
CPT/HCPCS: 29125; 70450; 70486; 71250; 72125; 73110; 73130; 73562; 99284

== ENCOUNTER 2024-12-26 13:40 | Outpatient (RCR) | payer MEDICARE, SELFPAY ==
--- NOTE | 2024-12-26 14:35 | OPREHPOC ---
Outpatient Therapy Plan of Care This is a Multidisciplinary Plan of Care that may contain components documented by all disciplines (PT, OT, and ST.) PT Problem 1 PT Problem #1 Knowledge Deficit PT Goal 1 Goal / Goal Update independent and compliant with HEP Target Visit 6 PT Problem 2 PT Problem #2 Pain PT Goal 1 Goal / Goal Update decrease pain at worst to 3/10 or less in the R LE Target Visit 12 PT Problem 3 PT Problem #3 Impaired Strength PT Goal 1 Goal / Goal Update improve core strength to 4-/5 or better overall improve bilateral hip strength to 4+/5 or better overall 5/5 R knee strength 4+/5 or better R ankle DF Target Visit 12 PT Problem 4 PT Problem #4 Impaired Range of Motion PT Goal 1 Goal / Goal Update active lumbar flexion without pain to the ankles active bilateral lumbar side bending to 30 degrees or better without pain Target Visit 12 PT Problem 5 PT Problem #5 Impaired Functional Mobility PT Goal 1 Goal / Goal Update oswestry to display less than 20% functional deficits patient to perform proper log roll in and out of bed without pain patient to report 75% or greater reduction in R LE paresthesia's patient to tolerate 45 minutes of standing therapy exercises without increased pain Target Visit 12
--- NOTE | 2024-12-26 14:35 | PTOPEVAL1 ---
Assessment and note entered by JT File, PT Evaluation Information Assessment Status Evaluation ICD-10 Condition Codes (PT) Pain in low back M54.50,Radiculopathy, lumbar region M54.16 Onset 11/13/24 Subjective Information patient reports he is coming to therapy due to nerve pain in the R LE. he had surgery on the lower back on 11/13/24. he reports he had no pain or issues from the lower back surgery since day 1. however, the nerve symptoms in the R LE began around October or november when he slipped while shoveling snow. he reports he did not fall, but hurt his leg. he reports he gets tingling and numbness in the R LE from the foot up to the hip. Reported Pain Level Pain Score 5: Self Report Assessment PT Clinical Summary mr. abel is a 79 yo man who presents to skilled PT services for evaluation and treatment of lower back and R LE pain. he presents today with no pain in the lower back, but nerve like symptoms in the R LE. he recently had a lumbar surgery about 1.5 months ago. he has no more pain in the lower back, but is having continued nerve symptoms in the R LE. he displays weakness of the R LE, decreased lumbar mobility, and core weakness. continued skilled PT is indicated to improve his objective/functional deficits and return to his prior level functional activity performance/ quality of life. Plan of Care Interventions Gait Training,Hot Pack/Cold Pack,Manual Therapy, Neuro Re-education,Patient/Caregiver Education, Therapeutic Activities,Therapeutic Exercise PT Services Indicated Yes Treatment Frequency and 3x weekly for 12 visits Duration These treatments will address the objective and functional deficits as defined above. The patient will be advanced safely and appropriately in order for the patient to progress towards his/her prior level of function. Additional exercises will be introduced and as well as a comprehensive home exercise program upon discharge, if needed, ?to ensure carryover of functional gains achieved in the clinic. This treatment plan has been reviewed and agreement upon by the patient.
--- NOTE | 2025-01-19 15:52 | OPREHPOC ---
Outpatient Therapy Plan of Care This is a Multidisciplinary Plan of Care that may contain components documented by all disciplines (PT, OT, and ST.) PT Problem 1 PT Problem #1 Knowledge Deficit PT Goal 1 Goal / Goal Update independent and compliant with HEP Target Visit 6 Progress Met PT Problem 2 PT Problem #2 Pain PT Goal 1 Goal / Goal Update decrease pain at worst to 3/10 or less in the R LE Target Visit 12 Progress Not Met PT Problem 3 PT Problem #3 Impaired Strength PT Goal 1 Goal / Goal Update improve core strength to 4-/5 or better overall - not met improve bilateral hip strength to 4+/5 or better overall -not met 5/5 R knee strength -met 4+/5 or better R ankle DF -met Target Visit 12 Progress Partially Met PT Problem 4 PT Problem #4 Impaired Range of Motion PT Goal 1 Goal / Goal Update active lumbar flexion without pain to the ankles - partially met, no pain when lumbar flexion but pain when standing back up active bilateral lumbar side bending to 30 degrees or better without pain -not met Target Visit 12 Progress Partially Met PT Problem 5 PT Problem #5 Impaired Functional Mobility PT Goal 1 Goal / Goal Update oswestry to display less than 20% functional deficits -not met patient to perform proper log roll in and out of bed without pain -met patient to report 75% or greater reduction in R LE paresthesia's -not met patient to tolerate 45 minutes of standing therapy exercises without increased pain -not met Target Visit 12 Progress Partially Met
--- NOTE | 2025-01-19 15:52 | PTOPPROG ---
Assessment and note entered by Jennifer Jensen, PT Evaluation Information Assessment Status Progress ICD-10 Condition Codes (PT) Pain in low back M54.50,Radiculopathy, lumbar region M54.16 Onset 11/13/24 Subjective Information Mr. Hernandez reports his pain is currently a 3/10. 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 Pain is still present when standing up after sitting and in prolonged standing. He also states his tingling and numbness down the R leg is still just as bad. He does note R toe pain today but that it's not related to the tingling, his R toe is red and the nailbed is discolored. He does also report tingling in his L toe. Assessment PT Clinical Summary Mr. Hernandez has attended 10 total skilled PT visits for low back pain with radicular symptoms down the R leg. Since beginning therapy he has made good progress in his lower extremity strength however his pain is still present and bothersome with prolonged standing, returning to upright after bending forward, riding his insurance follow up rep and driving. He still reports numbness and tingling down his R leg and this has not improved. He will benefit from continued skilled PT intervention to continue progressing toward goals to improve core/ LE strength and lumbar stability. Plan of Care Interventions Gait Training,Hot Pack/Cold Pack,Manual Therapy, Neuro Re-education,Patient/Caregiver Education, Therapeutic Activities,Therapeutic Exercise PT Services Indicated Yes Treatment Frequency and Continue with original POC Duration These treatments will address the objective and functional deficits as defined above. The patient will be advanced safely and appropriately in order for the patient to progress towards his/her prior level of function. Additional exercises will be introduced and as well as a comprehensive home exercise program upon discharge, if needed, ?to ensure carryover of functional gains achieved in the clinic. This treatment plan has been reviewed and agreement upon by the patient.
--- NOTE | 2025-01-23 12:44 | PTOPPROG ---
Assessment and note entered by Jennifer Jensen, PT Evaluation Information Assessment Status Progress ICD-10 Condition Codes (PT) Pain in low back M54.50,Radiculopathy, lumbar region M54.16 Onset 11/13/24 Subjective Information Jimbo reports he feels about the same as when he started therapy. 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 He states he has a follow up appointment with his doctor next week. Assessment PT Clinical Summary Mr. Hernandez has attended 12 total skilled PT visits for low back pain with radicular symptoms. 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 He has made some progress in his LE strength but his core strength is unchanged. We will hold continued PT at this time pending pt follow up with his doctor. Plan of Care Interventions Gait Training,Hot Pack/Cold Pack,Manual Therapy, Neuro Re-education,Patient/Caregiver Education, Therapeutic Activities,Therapeutic Exercise PT Services Indicated Yes Treatment Frequency and Hold continued skilled PT at this time pending pt Duration follow up with doctor These treatments will address the objective and functional deficits as defined above. The patient will be advanced safely and appropriately in order for the patient to progress towards his/her prior level of function. Additional exercises will be introduced and as well as a comprehensive home exercise program upon discharge, if needed, ?to ensure carryover of functional gains achieved in the clinic. This treatment plan has been reviewed and agreement upon by the patient.
== END 2025-03-26 23:59 | disposition home or self-care (01) ==
LOC: CHSPT 13:40
PROVIDERS: PCP Family Medicine
DX: M47.816 Spondylosis without myelopathy or radiculopathy, lumbar region (principal)
CPT/HCPCS: 97110; 97112; 97150; 97161